=== PATIENT | female | born 1975 ===

== ENCOUNTER 2021-09-25 19:10 | Emergency (ER) | payer SELFPAY ==
[2021-09-25] MEDS ORDERED: Ondansetron 4 MG/2 ML SDV IVPUSH ONE (19:29)
[2021-09-25] MEDS ORDERED: Morphine 4 MG/ML VIAL IVPUSH ONE (19:38)
[2021-09-25 19:43] LABS: BLOOD UREA NITROGEN,BUN 17 mg/dL (7.0-18.0); CARBON DIOXIDE,CO2 28.5 mmol/L (21.0-32.0); CHLORIDE,CL 103 mmol/L (98-107); ESTIMATED GFR 80 mL/min (>60); GLUCOSE RANDOM 132 mg/dL (74-106); LIPASE 167 U/L (73-393); POTASSIUM,K 3.3 mmol/L (3.5-5.1); SODIUM,NA 141 mmol/L (136-145)
[2021-09-25 20:03] LABS: CORONAVIRUS COVID-19 NAA NEGATIVE (NEGATIVE); INFLUENZA A NAA NEGATIVE (NEGATIVE); INFLUENZA B NAA NEGATIVE (NEGATIVE)
[2021-09-25 21:12] VITALS: BP 130/74; PULSE 61
== END 2021-09-25 21:12 | disposition home or self-care (01) ==
LOC: MW.ED 19:10
DX: K80.20 Calculus of gallbladder without cholecystitis without obstruction (principal); E66.9 Obesity, unspecified; Z68.30 Body mass index [BMI] 30.0-30.9, adult; Z20.822 Contact with and (suspected) exposure to COVID-19
CPT/HCPCS: 0240U; 36415; 71046; 71046-26; 76705; 76705-26; 80053; 83690; 83735; 84484; 84703; 85025; 93005; 93010; 96374; 96375; 99284-25; 99285; J2270; J2405

== ENCOUNTER 2021-11-27 13:03 | Emergency (ER) | payer SELFPAY | END 2021-11-27 17:50 | disposition left against medical advice (07) | LOC: MW.ED 13:03 | DX: Z53.21 Procedure and treatment not carried out due to patient leaving prior to being seen by health care provider (principal) ==